=== PATIENT | male | born 1950 | race Caucasian/White ===

== ENCOUNTER 2022-11-16 08:18 | Day surgery (SDC) | payer OTHER, MEDICARE ==
[2022-11-14 14:34] VITALS: BMI 24.7
[2022-11-16 10:04] VITALS: RESP 18
[2022-11-16 10:06] VITALS: BP 124/72; PULSE 65; TEMP 97.7
== END 2022-11-16 10:06 | disposition home or self-care (01) ==
LOC: FASU-ENDO 08:18
PROVIDERS: ATTEND Internal Medicine Gastroenterology
PROC: 0DB68ZX Excision of Stomach, Via Natural or Artificial Opening Endoscopic, Diagnostic (ICD-10-PCS; 2022-11-16)
PROC: 0DB48ZX Excision of Esophagogastric Junction, Via Natural or Artificial Opening Endoscopic, Diagnostic (ICD-10-PCS; 2022-11-16)
PROC: 0DB98ZX Excision of Duodenum, Via Natural or Artificial Opening Endoscopic, Diagnostic (ICD-10-PCS; principal; 2022-11-16 09:06)
DX: K29.50 Unspecified chronic gastritis without bleeding (principal); K21.00 Gastro-esophageal reflux disease with esophagitis, without bleeding; R10.13 Epigastric pain
CPT/HCPCS: 88305-TC; 88342-TC